=== PATIENT | male | born 1940 | race Caucasian/White ===

== ENCOUNTER 2019-12-15 06:23 | Outpatient (CLI) | payer MEDICARE, BC ==
[2019-12-15 11:05] LABS: #Basophils 0.1 10x3/uL (0.0-0.2); #Eosinphils 0.1 10x3/uL (0.0-0.5); #Monocytes 1.1 10x3/uL (0.0-1.1); #Neutrophils 5.1 10x3/uL (1.5-8.4); %Basophils 0.9 % (0.0-2.0); %Eosinophils 1.8 % (0.0-6.0); %Lymphocytes 17.5 % (18.0-47.0); %Neutrophils 65.5 % (40.0-75.0); Hemoglobin 12.2 g/dL (14.0-18.0); Mean Corpuscular HGB CONC 30.8 G/DL (32.0-36.0); Mean Corpuscular Hemoglobin 23.9 PG (27.0-33.0); Mean Corpuscular Volume 77.6 fl (80.0-100.0); Mean Platelet Volume 8.9 fl (7.4-10.4); Platelet Count 303 10x3/uL (130-400); RBC Distribution Width 18.3 % (11.5-14.5); White Blood Cell (WBC) Count 7.7 10x3/uL (4.5-11.0)
[2019-12-15 12:37] LABS: ALT (SGPT) 17 U/L (8-55); AST (SGOT) 16 U/L (5-34); Albumin 4.2 g/dL (3.4-4.8); Alkaline Phosphatase 105 U/L (40-110); Anion Gap 19 mmol/L (10-20); BUN (Urea Nitrogen) 33 mg/dL (8.4-25.7); Bilirubin, Total 0.3 mg/dL (0.2-1.2); Calc. Creatinine Clearance 0 mL/min (70-130); Calcium 9.2 mg/dL (7.8-10.44); Carbon Dioxide 21 mmol/L (23-31); Chloride 102 mmol/L (98-107); Estimated GFR-MDRD 49; Globulin 2.9 g/dL (2.4-3.5); Glucose 90 mg/dL (83-110); Potassium 5.3 mmol/L (3.5-5.1); Protein, Total 7.1 g/dL (5.8-8.1); Sodium 137 mmol/L (136-145)
--- NOTE | 2019-12-15 21:10 | EKG ---
Test Reason : Blood Pressure : / mmHG Vent. Rate : 067 BPM Atrial Rate : 067 BPM P-R Int : 176 ms QRS Dur : 108 ms QT Int : 416 ms P-R-T Axes : 010 -59 028 degrees QTc Int : 439 ms Normal sinus rhythm Incomplete right bundle branch block Left anterior fascicular block Abnormal ECG No previous ECGs available Confirmed by Eb JAVED ([id number]) on 12/15/2019 9:10:30 PM Referred By: CARMITA Confirmed By:Eb JAVED
[2019-12-16 14:43] LABS: SARS-CoV-2 MS2 Positive; SARS-CoV-2 N Gene Negative; SARS-CoV-2 S Gene Negative; SARS-CoV-2 by NAA Not Detected (NotDetected); SARS-CoV-2 orf1ab Negative
== END 2019-12-15 06:24 | disposition home or self-care (01) ==
LOC: LABBT 06:23
PROVIDERS: ATTEND Surgery
DX: Z01.818 Encounter for other preprocedural examination (principal); K40.90 Unilateral inguinal hernia, without obstruction or gangrene, not specified as recurrent; Z20.828 Contact with and (suspected) exposure to other viral communicable diseases
CPT/HCPCS: 80053; 85025; 93005; U0003; 87635; 93010

== ENCOUNTER 2019-12-20 05:59 | Day surgery (SDC) | payer MEDICARE, BC ==
[2019-12-17 11:47] VITALS: BMI 28.8
[2019-12-20] MEDS ORDERED: Lidocaine 1% w/Epinephrine 1:100K 20 ML VIAL ONE (06:30)
[2019-12-20] MEDS ORDERED: Bupivacaine 0.25% HCL 30 ML VIAL ONE (06:30)
[2019-12-20] MEDS ORDERED: Fentanyl 100 MCG/2 ML VIAL ONE (06:39)
--- NOTE | 2019-12-20 08:52 | OP ---
DATE OF PROCEDURE: 12/20/2019 PREOPERATIVE DIAGNOSIS: Right inguinal hernia. PROCEDURE PERFORMED: Right inguinal hernia repair with mesh. INDICATION: A 79-year-old male with enlarging painful right inguinal hernia. FINDINGS: Right indirect inguinal hernia. DESCRIPTION OF PROCEDURE: After informed consent was obtained, the patient was taken to the operating room, given total IV anesthesia, placed in supine position. Groin was prepped and draped in usual fashion. Local anesthesia was infiltrated subcutaneously and deep, and transverse right inguinal incision was performed. Subcu divided sharply. The fascia of external oblique was incised in direction of its fibers through the external ring. Spermatic cord was isolated with a Judie drain. Cremasteric fibers were . There was a hernia sac. This was dissected from surrounding cord structures down to the internal ring and reduced. Reduction was maintained utilizing a PHS hernia system. The posterior layer was placed in the preperitoneal space, anterior was laid out, sutured to the pubic tubercle medially with a 2-0 Prolene suture. Tucked under the external oblique fascia laterally. Hemostasis was assured. The cord placed anatomically. The external oblique fascia was closed with a running 3-0 Vicryl. Tolu was closed with interrupted 3-0 Vicryl and the skin was closed with a running subcuticular 4-0 Rapide. Steri-Strips were applied. Sterile bandage was applied. The patient tolerated the procedure well and transferred to Recovery in good condition. Sponge and needle count verified correct x2. Job ID: [id number]
[2019-12-20] MEDS ORDERED: Ketorolac Tromethamine 30 MG/ML VIAL ONE (11:42)
[2019-12-20] MEDS ORDERED: PROPOFOL 200 MG/20 ML VIAL ONE (11:42)
[2019-12-20] MEDS ORDERED: PHENYLEPHRINE-NS 100 MCG/ML 10 ML SYRINGE ONE (11:42)
[2019-12-20] MEDS ORDERED: Rocuronium Bromide 10 MG/ML (10ML VIAL) ONE (11:42)
[2019-12-20] MEDS ORDERED: Ondansetron PF 4 MG/2 ML Vial ONE (11:42)
[2019-12-20] MEDS ORDERED: Dexamethasone 20 MG/5 ML VIAL ONE (11:42)
[2019-12-20] MEDS ORDERED: Lidocaine 1% PF 5 ML VIAL ONE (11:42)
== END 2019-12-20 10:15 | disposition home or self-care (01) ==
LOC: SDC 05:59
PROVIDERS: ATTEND Surgery
PROC: 0YU50JZ Supplement Right Inguinal Region with Synthetic Substitute, Open Approach (ICD-10-PCS; principal; 2019-12-20)
DX: K40.90 Unilateral inguinal hernia, without obstruction or gangrene, not specified as recurrent (principal); I48.91 Unspecified atrial fibrillation; I11.0 Hypertensive heart disease with heart failure; I50.32 Chronic diastolic (congestive) heart failure; M10.9 Gout, unspecified; G62.9 Polyneuropathy, unspecified; Z79.01 Long term (current) use of anticoagulants; Z79.899 Other long term (current) drug therapy; Z98.1 Arthrodesis status
CPT/HCPCS: C1781; J0690; J1100; J1885; J2405; J2704; J3010; S0020

== ENCOUNTER 2020-04-19 17:49 | Inpatient (IN) | payer MEDICARE, BC ==
[2020-04-19] MEDS ORDERED: Morphine 4 MG/ML VIAL ONE (19:10)
[2020-04-19 19:19] LABS: #Eosinphils 0.3 thou/uL (0.0-0.7); #Lymphocytes 0.8 thou/uL (1.20-3.40); #Monocytes 0.8 thou/uL (0.11-0.59); #Neutrophils 7.3 thou/uL (1.40-6.50); %Basophils 0.5 % (0.0-1.0); %Eosinophils 2.9 % (0.0-10.0); %Monocytes 8.4 % (0.0-10.0); %Neutrophils 79.3 % (42.0-75.0); Hemoglobin 11.7 g/dL (14.0-18.0); Mean Corpuscular Hemoglobin 28.7 pg (27.0-31.0); Mean Corpuscular Volume 87.1 fL (78.0-98.0); Mean Platelet Volume 6.2 fL (7.4-10.4); Platelet Count 311 thou/uL (130-400); Red Blood Cell (RBC) Count 4.08 mill/uL (4.70-6.10); White Blood Cell (WBC) Count 9.2 thou/uL (4.8-10.8)
[2020-04-19] MEDS ORDERED: Ondansetron PF 4 MG/2 ML Vial ONE (19:46)
[2020-04-19 19:48] LABS: ALT (SGPT) 17 U/L (8-55); AST (SGOT) 18 U/L (5-34); Albumin 3.8 g/dL (3.4-4.8); Alkaline Phosphatase 90 U/L (40-110); Anion Gap 16 mmol/L (10-20); BUN (Urea Nitrogen) 36 mg/dL (8.4-25.7); Bilirubin, Total 0.3 mg/dL (0.2-1.2); Calc. Creatinine Clearance 0 mL/min (70-130); Carbon Dioxide 20 mmol/L (23-31); Chloride 103 mmol/L (98-107); Globulin 3.2 g/dL (2.4-3.5); Glucose 106 mg/dL (83-110); Potassium 4.5 mmol/L (3.5-5.1); Sodium 134 mmol/L (136-145)
[2020-04-19 20:51] LABS: INR-International Normal Ratio 1.1; PTT 33.8 sec (22.9-36.1); Prothrombin Time 14.6 sec (12.0-14.7)
[2020-04-19] MEDS ORDERED: Dextrose 50% Abboject 50 ML SYRINGE SLOW IVP PRN (21:26)
[2020-04-19] MEDS ORDERED: hydrALAZINE 20 MG/ML VIAL SLOW IVP PRN (21:26)
[2020-04-19] MEDS ORDERED: traMADol HCl 50 MG TAB PO PRN (21:26)
[2020-04-19] MEDS ORDERED: Ondansetron PF 4 MG/2 ML Vial IVP PRN (21:26)
[2020-04-19] MEDS ORDERED: Ondansetron ODT 4 MG TAB PO PRN (21:26)
[2020-04-19] MEDS ORDERED: Morphine 2 MG/ML VIAL SLOW IVP PRN (21:26)
[2020-04-19] MEDS ORDERED: Dextrose 5% in Water 1,000 ML IV PRN (21:26)
[2020-04-19] MEDS ORDERED: Morphine 4 MG/ML VIAL SLOW IVP PRN (21:26)
[2020-04-19] MEDS: Cyclobenzaprine 10 MG TAB PO PRN (21:47)
[2020-04-19] MEDS: Ibuprofen 800 MG TAB PO SCH (21:48)
[2020-04-19 22:27] VITALS: BMI 29.3
[2020-04-19] MEDS ORDERED: Famotidine 20 MG TAB PO SCH (22:30)
[2020-04-19] MEDS ORDERED: Valsartan 80 MG TAB PO SCH (22:45)
[2020-04-19] MEDS ORDERED: Amiodarone 200 MG TAB PO SCH (22:45)
[2020-04-19] MEDS ORDERED: Allopurinol 100 MG TAB PO SCH (22:45)
[2020-04-19] MEDS ORDERED: Sulfameth/Trimethoprim DS 800-160mg TAB PO SCH (22:45)
[2020-04-19] MEDS: Sodium Chloride 0.9% 1,000 ML IV SCH (23:40)
[2020-04-20] MEDS: Acetaminophen 325 MG TAB PO SCH ×5 (00:45→23:23)
[2020-04-20] MEDS ORDERED: Melatonin 3 MG TAB PO SCH (01:00)
[2020-04-20 02:38] LABS: SARS-CoV-2 PCR by NAA Not Detected (NotDetected)
[2020-04-20 05:10] LABS: #Eosinphils 0.4 thou/uL (0.0-0.7); #Lymphocytes 1.3 thou/uL (1.20-3.40); #Monocytes 0.9 thou/uL (0.11-0.59); #Neutrophils 4.6 thou/uL (1.40-6.50); %Basophils 0.3 % (0.0-1.0); %Eosinophils 5.3 % (0.0-10.0); %Lymphocytes 17.6 % (21.0-51.0); %Monocytes 13.1 % (0.0-10.0); %Neutrophils 63.7 % (42.0-75.0); Hemoglobin 10.4 g/dL (14.0-18.0); Mean Corpuscular HGB CONC 32.4 g/dL (32.0-36.0); Mean Corpuscular Hemoglobin 28.4 pg (27.0-31.0); Mean Corpuscular Volume 87.6 fL (78.0-98.0); Mean Platelet Volume 6.1 fL (7.4-10.4); Platelet Count 287 thou/uL (130-400); RBC Distribution Width 13.9 % (11.5-14.5); Red Blood Cell (RBC) Count 3.65 mill/uL (4.70-6.10); White Blood Cell (WBC) Count 7.2 thou/uL (4.8-10.8)
[2020-04-20 05:33] LABS: Anion Gap 12 mmol/L (10-20); BUN (Urea Nitrogen) 37 mg/dL (8.4-25.7); Calc. Creatinine Clearance 58 mL/min (70-130); Calcium 8.5 mg/dL (7.8-10.44); Carbon Dioxide 23 mmol/L (23-31); Chloride 103 mmol/L (98-107); Glucose 116 mg/dL (83-110); Potassium 4.2 mmol/L (3.5-5.1); Sodium 134 mmol/L (136-145)
[2020-04-20] MEDS: Ibuprofen 800 MG TAB PO SCH ×3 (06:12→22:12)
[2020-04-20] MEDS: Sodium Chloride 0.9% 1,000 ML IV SCH ×2 (06:18→23:23)
[2020-04-20] MEDS ORDERED: Vancomycin 1 GM in Premix Bag 1 BAG IVPB SCH (08:30)
[2020-04-20] MEDS ORDERED: CEFAZOLIN 2 GM in Premix Bag 1 BAG IVPB SCH (08:30)
[2020-04-20] MEDS: Allopurinol 100 MG TAB PO SCH (08:47)
[2020-04-20] MEDS: Sulfameth/Trimethoprim DS 800-160mg TAB PO SCH ×2 (08:47→20:25)
[2020-04-20] MEDS: Triamterene/Hydrochlorothiazide 37.5 mg/25 mg Tablet PO SCH (08:49)
[2020-04-20] MEDS: traMADol HCl 50 MG TAB PO PRN (13:37)
[2020-04-20] MEDS: Valsartan 80 MG TAB PO SCH (20:25)
[2020-04-20] MEDS: Famotidine 20 MG TAB PO SCH (20:25)
[2020-04-20] MEDS: Cyclobenzaprine 10 MG TAB PO PRN (20:27)
[2020-04-20] MEDS ORDERED: Amiodarone 200 MG TAB PO SCH (21:00)
[2020-04-21] MEDS: Acetaminophen 325 MG TAB PO SCH ×4 (05:47→23:02)
[2020-04-21] MEDS: Ibuprofen 800 MG TAB PO SCH ×3 (05:48→21:15)
[2020-04-21] MEDS ORDERED: Amiodarone 200 MG TAB PO SCH (08:15)
[2020-04-21 08:33] LABS: Hemoglobin 10.3 g/dL (14.0-18.0); Mean Corpuscular HGB CONC 32.8 g/dL (32.0-36.0); Mean Corpuscular Hemoglobin 28.6 pg (27.0-31.0); Mean Corpuscular Volume 87.2 fL (78.0-98.0); Platelet Count 285 thou/uL (130-400); RBC Distribution Width 13.9 % (11.5-14.5); Red Blood Cell (RBC) Count 3.61 mill/uL (4.70-6.10); White Blood Cell (WBC) Count 7.5 thou/uL (4.8-10.8)
[2020-04-21 08:40] LABS: Anion Gap 13 mmol/L (10-20); BUN (Urea Nitrogen) 27 mg/dL (8.4-25.7); Calc. Creatinine Clearance 73 mL/min (70-130); Calcium 8.3 mg/dL (7.8-10.44); Carbon Dioxide 22 mmol/L (23-31); Chloride 104 mmol/L (98-107); Glucose 87 mg/dL (83-110); Magnesium 1.9 mg/dL (1.6-2.6); Phosphorus 2.8 mg/dL (2.3-4.7); Potassium 4.6 mmol/L (3.5-5.1); Sodium 134 mmol/L (136-145)
[2020-04-21] MEDS: Sodium Chloride 0.9% 1,000 ML IV SCH (08:41)
[2020-04-21] MEDS ORDERED: ePHEDrine 50 MG/ML VIAL ONE (09:12)
[2020-04-21] MEDS ORDERED: PROPOFOL 200 MG/20 ML VIAL ONE (09:12)
[2020-04-21] MEDS ORDERED: Rocuronium Bromide 10 MG/ML (10ML VIAL) ONE (09:12)
[2020-04-21] MEDS ORDERED: Lidocaine 1% PF 5 ML VIAL ONE (09:12)
[2020-04-21] MEDS ORDERED: PHENYLEPHRINE-NS 100 MCG/ML 10 ML SYRINGE ONE (09:12)
[2020-04-21] MEDS ORDERED: Glycopyrrolate 0.2 MG/ML 5 ML SYRINGE ONE (09:12)
[2020-04-21] MEDS ORDERED: Vecuronium 10 MG VIAL ONE (09:12)
[2020-04-21] MEDS ORDERED: Fentanyl 250 MCG/5 ML VIAL ONE (09:39)
[2020-04-21] MEDS ORDERED: Lidocaine 2% Jelly 5 ML TUBE ONE (09:39)
[2020-04-21] MEDS ORDERED: Phenylephrine 10 MG/ML VIAL ONE ×2 (09:39→11:39)
[2020-04-21 11:38] LABS: Hemoglobin 9.9 g/dL (14.0-18.0)
[2020-04-21] MEDS ORDERED: Ondansetron HCl/PF 4 MG/2 ML Vial IVP PRN (12:22)
[2020-04-21] MEDS ORDERED: Promethazine HCl 25 MG/ML VIAL IM PRN (12:22)
[2020-04-21] MEDS ORDERED: Promethazine HCl 25 MG/ML VIAL SLOW IVP PRN (12:22)
[2020-04-21] MEDS ORDERED: Promethazine HCl 25 MG/ML VIAL ONE (13:42)
[2020-04-21 14:43] LABS: Hemoglobin 8.6 g/dL (14.0-18.0)
[2020-04-21] MEDS ORDERED: Sodium Phosphate 30 MMOL in Sodium Chloride 0.9% 250 ML 250 ML IVPB SCH (15:00)
[2020-04-21] MEDS ORDERED: Magnesium Sulfate 2 GM in Sodium Chloride 0.9% 100 ML IVPB SCH (15:00)
[2020-04-21] MEDS: Allopurinol 100 MG TAB PO SCH (16:20)
[2020-04-21] MEDS: Polyethylene Glycol 3350 17 GM Packet PO SCH (16:21)
[2020-04-21] MEDS: Sulfameth/Trimethoprim DS 800-160mg TAB PO SCH ×2 (16:21→19:43)
[2020-04-21] MEDS: Senokot S 8.6-50 MG TAB PO SCH ×2 (16:21→19:42)
[2020-04-21] MEDS: Triamterene/Hydrochlorothiazide 37.5 mg/25 mg Tablet PO SCH (16:21)
[2020-04-21] MEDS: CEFAZOLIN 2 GM in Premix Bag 1 BAG IVPB SCH (17:54)
[2020-04-21] MEDS: Cyclobenzaprine 10 MG TAB PO PRN (19:37)
[2020-04-21] MEDS: traMADol HCl 50 MG TAB PO PRN (19:39)
[2020-04-21] MEDS: Famotidine 20 MG TAB PO SCH (19:42)
[2020-04-21] MEDS: Amiodarone 200 MG TAB PO SCH (19:44)
[2020-04-21] MEDS: Valsartan 80 MG TAB PO SCH ×2 (19:44)
[2020-04-21] MEDS ORDERED: Vancomycin HCl 1.5 GM in Sodium Chloride 0.9% 250 ML 300 ML IVPB SCH (23:00)
[2020-04-21] MEDS: Vancomycin 1.5 GRAM/300 ML BAG 1.5 GM in Premix Bag 1 BAG IVPB SCH (23:02)
[2020-04-22] MEDS: traMADol HCl 50 MG TAB PO PRN (01:22)
[2020-04-22] MEDS: CEFAZOLIN 2 GM in Premix Bag 1 BAG IVPB SCH ×2 (01:23→09:20)
[2020-04-22] MEDS: Acetaminophen 325 MG TAB PO SCH ×3 (05:18→17:25)
[2020-04-22] MEDS: Cyclobenzaprine 10 MG TAB PO PRN (05:18)
[2020-04-22] MEDS: Ibuprofen 800 MG TAB PO SCH ×3 (05:19→21:18)
[2020-04-22 05:47] LABS: Hemoglobin 7.8 g/dL (14.0-18.0); Mean Corpuscular HGB CONC 33.2 g/dL (32.0-36.0); Mean Corpuscular Hemoglobin 29.3 pg (27.0-31.0); Mean Corpuscular Volume 88.4 fL (78.0-98.0); Mean Platelet Volume 6.4 fL (7.4-10.4); Platelet Count 295 thou/uL (130-400); RBC Distribution Width 13.6 % (11.5-14.5); Red Blood Cell (RBC) Count 2.66 mill/uL (4.70-6.10); White Blood Cell (WBC) Count 11.2 thou/uL (4.8-10.8)
[2020-04-22 06:30] LABS: Anion Gap 14 mmol/L (10-20); BUN (Urea Nitrogen) 28 mg/dL (8.4-25.7); Calc. Creatinine Clearance 63 mL/min (70-130); Calcium 7.8 mg/dL (7.8-10.44); Carbon Dioxide 20 mmol/L (23-31); Chloride 103 mmol/L (98-107); Glucose 128 mg/dL (83-110); Magnesium 2.2 mg/dL (1.6-2.6); Phosphorus 4.1 mg/dL (2.3-4.7); Potassium 4.7 mmol/L (3.5-5.1); Sodium 132 mmol/L (136-145)
[2020-04-22] MEDS: Polyethylene Glycol 3350 17 GM Packet PO SCH (09:14)
[2020-04-22] MEDS: Sulfameth/Trimethoprim DS 800-160mg TAB PO SCH ×3 (09:15→23:20)
[2020-04-22] MEDS: Senokot S 8.6-50 MG TAB PO SCH ×2 (09:15→21:13)
[2020-04-22] MEDS: Triamterene/Hydrochlorothiazide 37.5 mg/25 mg Tablet PO SCH (09:15)
[2020-04-22] MEDS: Allopurinol 100 MG TAB PO SCH (09:16)
[2020-04-22] MEDS ORDERED: Apixaban 2.5 MG TAB PO SCH (09:30)
[2020-04-22] MEDS: Acetaminophen/Codeine 30-300mg Tablet PO SCH ×3 (10:35→21:19)
[2020-04-22] MEDS: Vancomycin 1.5 GRAM/300 ML BAG 1.5 GM in Premix Bag 1 BAG IVPB SCH (10:35)
[2020-04-22] MEDS ORDERED: Cepastat Lozenges 1 LOZ PO PRN (13:30)
[2020-04-22] MEDS ORDERED: Chloraseptic Spray 180 ml Bottle PO PRN (13:31)
[2020-04-22] MEDS: Ferrous Sulfate 325 MG TAB PO SCH (17:26)
[2020-04-22] MEDS ORDERED: Apixaban 5 MG TAB PO SCH (21:00)
[2020-04-22] MEDS: Famotidine 20 MG TAB PO SCH (21:13)
[2020-04-22] MEDS: Ascorbic Acid 500 mg Chewable Tablet PO SCH (21:13)
[2020-04-22] MEDS: Amiodarone 200 MG TAB PO SCH (21:15)
[2020-04-22] MEDS: Melatonin 3 MG TAB PO SCH (21:15)
[2020-04-22] MEDS: Valsartan 80 MG TAB PO SCH (23:21)
[2020-04-23] MEDS: Acetaminophen 325 MG TAB PO SCH ×4 (04:08→17:58)
[2020-04-23] MEDS: Acetaminophen/Codeine 30-300mg Tablet PO SCH ×4 (04:55→21:10)
[2020-04-23] MEDS: Ibuprofen 800 MG TAB PO SCH (04:56)
[2020-04-23 06:05] LABS: Hemoglobin 6.5 g/dL (14.0-18.0); Mean Corpuscular HGB CONC 32.5 g/dL (32.0-36.0); Mean Corpuscular Hemoglobin 28.4 pg (27.0-31.0); Mean Corpuscular Volume 87.4 fL (78.0-98.0); Mean Platelet Volume 6.2 fL (7.4-10.4); Platelet Count 250 thou/uL (130-400); RBC Distribution Width 13.8 % (11.5-14.5); Red Blood Cell (RBC) Count 2.28 mill/uL (4.70-6.10); White Blood Cell (WBC) Count 8.6 thou/uL (4.8-10.8)
[2020-04-23 06:13] LABS: Anion Gap 14 mmol/L (10-20); BUN (Urea Nitrogen) 35 mg/dL (8.4-25.7); Calc. Creatinine Clearance 44 mL/min (70-130); Calcium 7.6 mg/dL (7.8-10.44); Carbon Dioxide 19 mmol/L (23-31); Chloride 100 mmol/L (98-107); Glucose 94 mg/dL (83-110); Potassium 4.1 mmol/L (3.5-5.1); Sodium 129 mmol/L (136-145)
[2020-04-23] MEDS: Sulfameth/Trimethoprim DS 800-160mg TAB PO SCH ×4 (07:55→21:12)
[2020-04-23] MEDS: Calcium Gluconate 4.6 MEQ in Sodium Chloride 0.9% 100 ML IVPB SCH ×2 (10:48→18:01)
[2020-04-23] MEDS: Senokot S 8.6-50 MG TAB PO SCH ×2 (10:48→21:11)
[2020-04-23] MEDS: Polyethylene Glycol 3350 17 GM Packet PO SCH (10:49)
[2020-04-23] MEDS: Ferrous Sulfate 325 MG TAB PO SCH ×2 (10:49→16:00)
[2020-04-23] MEDS: Allopurinol 100 MG TAB PO SCH (10:49)
[2020-04-23] MEDS: Ascorbic Acid 500 mg Chewable Tablet PO SCH ×2 (10:49→21:12)
[2020-04-23 14:41] LABS: Hemoglobin 7.2 g/dL (14.0-18.0); Platelet Count 264 thou/uL (130-400)
[2020-04-23 18:58] LABS: Hemoglobin 7.7 g/dL (14.0-18.0); Platelet Count 229 thou/uL (130-400)
[2020-04-23] MEDS: Famotidine 20 MG TAB PO SCH (21:10)
[2020-04-23] MEDS: Valsartan 80 MG TAB PO SCH (21:12)
[2020-04-23] MEDS: Cyclobenzaprine 10 MG TAB PO PRN (21:12)
[2020-04-23] MEDS: Amiodarone 200 MG TAB PO SCH (21:12)
[2020-04-23] MEDS: Melatonin 3 MG TAB PO SCH (21:12)
[2020-04-24] MEDS: Acetaminophen 325 MG TAB PO SCH ×5 (00:11→23:18)
[2020-04-24] MEDS: Melatonin 3 MG TAB PO SCH ×2 (00:11→21:19)
[2020-04-24] MEDS: Acetaminophen/Codeine 30-300mg Tablet PO SCH ×4 (03:56→21:20)
[2020-04-24 05:39] LABS: #Eosinphils 0.7 thou/uL (0.0-0.7); #Lymphocytes 1.1 thou/uL (1.20-3.40); #Neutrophils 4.2 thou/uL (1.40-6.50); %Basophils 0.6 % (0.0-1.0); %Eosinophils 9.9 % (0.0-10.0); %Lymphocytes 15.3 % (21.0-51.0); %Monocytes 14.6 % (0.0-10.0); %Neutrophils 59.7 % (42.0-75.0); Mean Corpuscular HGB CONC 33.8 g/dL (32.0-36.0); Mean Corpuscular Hemoglobin 29.9 pg (27.0-31.0); Mean Corpuscular Volume 88.3 fL (78.0-98.0); Mean Platelet Volume 6.3 fL (7.4-10.4); Platelet Count 241 thou/uL (130-400); RBC Distribution Width 13.7 % (11.5-14.5); Red Blood Cell (RBC) Count 2.69 mill/uL (4.70-6.10)
[2020-04-24 06:18] LABS: Anion Gap 13 mmol/L (10-20); BUN (Urea Nitrogen) 26 mg/dL (8.4-25.7); Calc. Creatinine Clearance 72 mL/min (70-130); Calcium 8.3 mg/dL (7.8-10.44); Carbon Dioxide 22 mmol/L (23-31); Chloride 105 mmol/L (98-107); Glucose 92 mg/dL (83-110); Phosphorus 2.6 mg/dL (2.3-4.7); Potassium 4.6 mmol/L (3.5-5.1); Sodium 135 mmol/L (136-145)
[2020-04-24] MEDS ORDERED: Fentanyl 100 MCG/2 ML VIAL ONE (07:33)
[2020-04-24] MEDS: Polyethylene Glycol 3350 17 GM Packet PO SCH (09:22)
[2020-04-24] MEDS: Sulfameth/Trimethoprim DS 800-160mg TAB PO SCH ×4 (09:23→21:20)
[2020-04-24] MEDS: Allopurinol 100 MG TAB PO SCH (09:23)
[2020-04-24] MEDS: Senokot S 8.6-50 MG TAB PO SCH ×2 (09:23→21:19)
[2020-04-24] MEDS: Ferrous Sulfate 325 MG TAB PO SCH ×2 (09:23→17:06)
[2020-04-24] MEDS: Ascorbic Acid 500 mg Chewable Tablet PO SCH ×2 (09:23→21:19)
[2020-04-24] MEDS: Cyclobenzaprine 10 MG TAB PO PRN (21:18)
[2020-04-24] MEDS: Amiodarone 200 MG TAB PO SCH (21:19)
[2020-04-24] MEDS: Valsartan 80 MG TAB PO SCH (21:20)
[2020-04-25] MEDS: Acetaminophen 325 MG TAB PO SCH ×3 (05:05→18:26)
[2020-04-25] MEDS: Acetaminophen/Codeine 30-300mg Tablet PO SCH ×4 (05:05→21:10)
[2020-04-25 05:50] LABS: Hemoglobin 7.7 g/dL (14.0-18.0); Mean Corpuscular HGB CONC 33.1 g/dL (32.0-36.0); Mean Corpuscular Hemoglobin 29.5 pg (27.0-31.0); Mean Corpuscular Volume 89.2 fL (78.0-98.0); Mean Platelet Volume 6.1 fL (7.4-10.4); Platelet Count 278 thou/uL (130-400); RBC Distribution Width 14.1 % (11.5-14.5); Red Blood Cell (RBC) Count 2.62 mill/uL (4.70-6.10); White Blood Cell (WBC) Count 7.5 thou/uL (4.8-10.8)
[2020-04-25 05:56] LABS: Hemoglobin 7.7 g/dL (14.0-18.0); Mean Corpuscular HGB CONC 33.3 g/dL (32.0-36.0); Mean Corpuscular Hemoglobin 29.7 pg (27.0-31.0); Mean Corpuscular Volume 89.3 fL (78.0-98.0); Mean Platelet Volume 6.1 fL (7.4-10.4); Platelet Count 276 thou/uL (130-400); White Blood Cell (WBC) Count 7.6 thou/uL (4.8-10.8)
[2020-04-25 06:06] LABS: Anion Gap 11 mmol/L (10-20); BUN (Urea Nitrogen) 23 mg/dL (8.4-25.7); Calc. Creatinine Clearance 87 mL/min (70-130); Calcium 8.3 mg/dL (7.8-10.44); Carbon Dioxide 24 mmol/L (23-31); Chloride 106 mmol/L (98-107); Glucose 96 mg/dL (83-110); Magnesium 1.8 mg/dL (1.6-2.6); Phosphorus 2.5 mg/dL (2.3-4.7); Potassium 4.5 mmol/L (3.5-5.1); Sodium 136 mmol/L (136-145)
[2020-04-25 08:28] LABS: Band 2 % (5-11); Eosinophils 9 % (0-10); Lymphocytes 15 % (21-51); MDiff Complete? YES; Monocytes 13 % (0-10); Myelocyte 1 % (0-0); Neutrophil 60 % (42-75); Polychromasia SLIGHT = 2-3 cells (100X) (0-2/hpf)
[2020-04-25] MEDS: Senokot S 8.6-50 MG TAB PO SCH ×2 (08:55→20:41)
[2020-04-25] MEDS: Ferrous Sulfate 325 MG TAB PO SCH ×2 (08:56→18:26)
[2020-04-25] MEDS: Ascorbic Acid 500 mg Chewable Tablet PO SCH ×2 (08:56→20:40)
[2020-04-25] MEDS: Allopurinol 100 MG TAB PO SCH (08:56)
[2020-04-25] MEDS: Sulfameth/Trimethoprim DS 800-160mg TAB PO SCH ×3 (08:56→20:40)
[2020-04-25] MEDS: Apixaban 2.5 MG TAB PO SCH ×2 (08:57→20:40)
[2020-04-25] MEDS: Polyethylene Glycol 3350 17 GM Packet PO SCH (08:57)
[2020-04-25] MEDS ORDERED: Apixaban 5 MG TAB PO SCH (09:00)
[2020-04-25] MEDS: Valsartan 80 MG TAB PO SCH (20:39)
[2020-04-25] MEDS: Amiodarone 200 MG TAB PO SCH (20:40)
[2020-04-25] MEDS: Cyclobenzaprine 10 MG TAB PO PRN (20:41)
[2020-04-25] MEDS: Melatonin 3 MG TAB PO SCH (20:41)
[2020-04-26] MEDS: Acetaminophen 325 MG TAB PO SCH ×3 (00:23→12:17)
[2020-04-26] MEDS: Acetaminophen/Codeine 30-300mg Tablet PO SCH ×3 (05:19→15:30)
[2020-04-26] MEDS: Ascorbic Acid 500 mg Chewable Tablet PO SCH (08:56)
[2020-04-26] MEDS: Apixaban 2.5 MG TAB PO SCH (08:56)
[2020-04-26] MEDS: Ferrous Sulfate 325 MG TAB PO SCH (08:56)
[2020-04-26] MEDS: Sulfameth/Trimethoprim DS 800-160mg TAB PO SCH (08:57)
[2020-04-26] MEDS: Allopurinol 100 MG TAB PO SCH (08:57)
[2020-04-26] MEDS: Senokot S 8.6-50 MG TAB PO SCH (08:57)
[2020-04-26] MEDS: Polyethylene Glycol 3350 17 GM Packet PO SCH (08:57)
[2020-04-26 15:51] VITALS: BP 147/83; TEMP 98.8
== END 2020-04-26 16:40 | DRG 467 ==
LOC: ERS 17:49 → SURG A 19:05
PROVIDERS: ADMIT Surgery; ATTEND Surgery
PROC: 0SRS03Z Replacement of Left Hip Joint, Femoral Surface with Ceramic Synthetic Substitute, Open Approach (ICD-10-PCS; principal; 2020-04-21)
PROC: 0SPS0JZ Removal of Synthetic Substitute from Left Hip Joint, Femoral Surface, Open Approach (ICD-10-PCS; 2020-04-21)
PROC: 0QS904Z Reposition Left Femoral Shaft with Internal Fixation Device, Open Approach (ICD-10-PCS; 2020-04-21)
PROC: 30233N1 Transfusion of Nonautologous Red Blood Cells into Peripheral Vein, Percutaneous Approach (ICD-10-PCS; 2020-04-23)
DX: S72.352A Displaced comminuted fracture of shaft of left femur, initial encounter for closed fracture (principal); M97.02XA Periprosthetic fracture around internal prosthetic left hip joint, initial encounter; N17.9 Acute kidney failure, unspecified; T84.52XA Infection and inflammatory reaction due to internal left hip prosthesis, initial encounter; E87.1 Hypo-osmolality and hyponatremia; Z20.822 Contact with and (suspected) exposure to COVID-19; D64.9 Anemia, unspecified; I48.91 Unspecified atrial fibrillation; I10 Essential (primary) hypertension; M10.9 Gout, unspecified; Y83.1 Surgical operation with implant of artificial internal device as the cause of abnormal reaction of the patient, or of later complication, without mention of misadventure at the time of the procedure; V80.010A Animal-rider injured by fall from or being thrown from horse in noncollision accident, initial encounter; Y93.52 Activity, horseback riding; Z79.01 Long term (current) use of anticoagulants; Z79.899 Other long term (current) drug therapy
CPT/HCPCS: 36415; 36430; 71045; 72170; 80048; 80053; 83735; 84100; 84484; 85025; 85027; 85610; 85730; 86850; 86900; 86901; 87635; 93005; 96374; 96375; C1776; J0690; J2001; J2270; J2370; J2405; J2550; J2704; J3010; J3370; J3475; J3490; J7050; P9016; U0003; U0005

== ENCOUNTER 2020-10-20 19:05 | Emergency (ER) | payer MEDICARE, BC ==
[2020-10-20] MEDS ORDERED: PROPOFOL 20 ML ONE (20:17)
[2020-10-20] MEDS ORDERED: PROPOFOL 0 ML ONE (20:17)
[2020-10-20] MEDS ORDERED: Fentanyl 100 MCG/2 ML VIAL ONE (20:17)
== END 2020-10-20 21:41 | disposition home or self-care (01) ==
LOC: ERS 19:05
DX: T84.021A Dislocation of internal left hip prosthesis, initial encounter (principal); I48.91 Unspecified atrial fibrillation; I10 Essential (primary) hypertension; M10.9 Gout, unspecified; Z96.642 Presence of left artificial hip joint
CPT/HCPCS: 27250; 96374; 99152; J2704; J3010

== ENCOUNTER 2020-12-14 09:37 | Outpatient (CLI) | payer MEDICARE, BC | END 2020-12-14 09:38 | disposition home or self-care (01) | LOC: RAD 09:37 | PROVIDERS: ATTEND Orthopaedic Surgery | DX: M00.9 Pyogenic arthritis, unspecified (principal) | CPT/HCPCS: 20610; 77002; 87070; 87205 ==

== ENCOUNTER 2021-01-03 11:55 | Outpatient (CLI) | payer MEDICARE, BC ==
[2021-01-02 10:43] VITALS: BMI 27.6
[2021-01-03 13:14] LABS: #Basophils 0.1 10x3/uL (0.0-0.2); #Eosinphils 0.2 10x3/uL (0.0-0.5); #Monocytes 1.2 10x3/uL (0.0-1.1); #Neutrophils 4.6 10x3/uL (1.5-8.4); %Basophils 0.7 % (0.0-2.0); %Eosinophils 2.6 % (0.0-6.0); %Lymphocytes 28.3 % (18.0-47.0); %Monocytes 13.9 % (0.0-10.0); %Neutrophils 54.1 % (40.0-75.0); Hemoglobin 12.4 g/dL (13.5-17.5); Mean Corpuscular HGB CONC 31.4 g/dL (32.0-36.0); Mean Corpuscular Volume 85.9 fl (81.2-95.1); Mean Platelet Volume 8.4 fl (7.4-10.4); Platelet Count 336 10x3/uL (150-450); RBC Distribution Width 15.4 % (11.5-14.5); White Blood Cell (WBC) Count 8.5 10x3/uL (3.5-10.5)
[2021-01-03 13:22] LABS: INR-International Normal Ratio 1.1; Prothrombin Time 11.6 sec (9.5-12.1)
[2021-01-03 13:31] LABS: Anion Gap 17 mmol/L (10-20); BUN (Urea Nitrogen) 20 mg/dL (8.4-25.7); CRP (Inflammatory) 5.13 mg/dL (= or < 0.5); Calc. Creatinine Clearance 67 mL/min (70-130); Carbon Dioxide 24 mmol/L (23-31); Chloride 102 mmol/L (98-107); Glucose 71 mg/dL (83-110); Potassium 4.8 mmol/L (3.5-5.1); Sodium 138 mmol/L (136-145)
[2021-01-04 21:05] LABS: SARS-CoV-2 PCR by NAA Not Detected (NotDetected)
== END 2021-01-03 11:56 | disposition home or self-care (01) ==
LOC: LABBT 11:55
PROVIDERS: ATTEND Orthopaedic Surgery
DX: Z01.818 Encounter for other preprocedural examination (principal); M00.9 Pyogenic arthritis, unspecified; Z96.651 Presence of right artificial knee joint; Z20.822 Contact with and (suspected) exposure to COVID-19
CPT/HCPCS: 80048; 85025; 85610; 86140; 87081; 93005; U0003; U0005; 93010

== ENCOUNTER 2021-01-08 10:02 | Inpatient (IN) | payer MEDICARE, BC ==
[2021-01-08] MEDS ORDERED: Tranexamic Acid 1,000 MG/10 ML VIAL ONE (10:14)
[2021-01-08] MEDS ORDERED: Fentanyl 100 MCG/2 ML VIAL ONE ×5 (10:14→16:02)
[2021-01-08] MEDS ORDERED: Sodium Chloride 0.9% 100 ML ONE (10:14)
[2021-01-08] MEDS ORDERED: Midazolam HCl 2 mg/2 ml Vial ONE (10:14)
[2021-01-08] MEDS ORDERED: Lidocaine 2% Jelly 5 ML TUBE ONE (10:32)
[2021-01-08] MEDS ORDERED: Rocuronium Bromide 10 MG/ML (10ML VIAL) ONE (11:15)
[2021-01-08] MEDS ORDERED: Bupivacaine HCl 0.5%/Epinephrine 1:200,000/PF 30 ml Vial ONE (11:15)
[2021-01-08] MEDS ORDERED: Dexamethasone 20 MG/5 ML VIAL ONE (11:15)
[2021-01-08] MEDS ORDERED: Ondansetron PF 4 MG/2 ML Vial ONE (11:15)
[2021-01-08] MEDS ORDERED: PHENYLEPHRINE-NS 100 MCG/ML 10 ML SYRINGE ONE ×2 (11:15→13:28)
[2021-01-08] MEDS ORDERED: ePHEDrine 50 MG/ML VIAL ONE (11:15)
[2021-01-08] MEDS ORDERED: PROPOFOL 200 MG/20 ML VIAL ONE (11:15)
[2021-01-08] MEDS ORDERED: Glycopyrrolate 0.2 MG/ML 5 ML SYRINGE ONE (11:15)
[2021-01-08] MEDS ORDERED: Heparin 1,000 UNITS/ML VIAL ONE (11:21)
[2021-01-08] MEDS ORDERED: Tobramycin/Dexamethasone Ophth Oint 3.5 GM TUBE ONE (11:45)
[2021-01-08] MEDS ORDERED: Tobramycin Sulfate 1.2 GM VIAL ONE (11:46)
[2021-01-08] MEDS ORDERED: Promethazine HCl 25 MG/ML VIAL IM PRN ×3 (11:47→14:31)
[2021-01-08] MEDS ORDERED: Ondansetron HCl/PF 4 MG/2 ML Vial IVP PRN ×2 (11:47→14:31)
[2021-01-08] MEDS ORDERED: Promethazine HCl 25 MG/ML VIAL IVPB PRN ×2 (11:47→14:31)
[2021-01-08] MEDS ORDERED: Rocuronium Bromide 50 MG/5 ML VIAL ONE (13:10)
[2021-01-08] MEDS ORDERED: Albumin 5% 500 ML ONE (13:28)
[2021-01-08] MEDS ORDERED: ePHEDrine Sulfate 50 MG/10 ML VIAL ONE (13:28)
[2021-01-08] MEDS ORDERED: diphenhydrAMINE 25 MG CAP PO PRN (14:29)
[2021-01-08] MEDS ORDERED: Ondansetron PF 4 MG/2 ML Vial IVP PRN (14:29)
[2021-01-08] MEDS ORDERED: Acetaminophen 325 MG TAB PO PRN (14:29)
[2021-01-08] MEDS ORDERED: Zolpidem Tartrate 5 MG TAB PO PRN ×3 (14:29→20:04)
[2021-01-08] MEDS: Sodium Chloride 0.9% 1,000 ML IV SCH (17:40)
[2021-01-08] MEDS: HYDROcodone/Acetaminophen 10/325 mg Tablet PO PRN ×2 (17:55→23:23)
[2021-01-08] MEDS: Acetaminophen 325 MG TAB PO SCH ×2 (17:56→23:22)
[2021-01-08] MEDS ORDERED: Ferrous Gluconate 324 MG TAB PO SCH (21:00)
[2021-01-08] MEDS: Amiodarone 200 MG TAB PO SCH (21:04)
[2021-01-08] MEDS: Aspirin 81 mg Enteric Coated Tablet PO SCH (21:04)
[2021-01-08] MEDS: Valsartan 80 MG TAB PO SCH (21:05)
[2021-01-08] MEDS: CEFAZOLIN 2 GM, Admixture Fee 1 EACH in Sodium Chloride 0.9% 100 ML IVPB SCH (21:51)
[2021-01-09] MEDS: Sodium Chloride 0.9% 1,000 ML IV SCH ×3 (01:21→18:05)
[2021-01-09] MEDS: CEFAZOLIN 2 GM, Admixture Fee 1 EACH in Sodium Chloride 0.9% 100 ML IVPB SCH ×2 (04:45→12:20)
[2021-01-09] MEDS: HYDROcodone/Acetaminophen 10/325 mg Tablet PO PRN ×3 (04:46→22:08)
[2021-01-09] MEDS: Acetaminophen 325 MG TAB PO SCH ×3 (04:49→18:04)
[2021-01-09 06:16] LABS: Hemoglobin 9.6 g/dL (14.0-18.0); Mean Corpuscular HGB CONC 31.7 g/dL (32.0-36.0); Mean Corpuscular Hemoglobin 28.6 pg (27.0-31.0); Platelet Count 267 thou/uL (130-400); RBC Distribution Width 13.8 % (11.5-14.5); Red Blood Cell (RBC) Count 3.36 mill/uL (4.70-6.10)
[2021-01-09] MEDS: Senokot S 8.6-50 MG TAB PO SCH ×2 (08:32→21:10)
[2021-01-09] MEDS: Triamterene/Hydrochlorothiazide 37.5 mg/25 mg Tablet PO SCH (08:33)
[2021-01-09] MEDS: Ferrous Sulfate 325 MG TAB PO SCH ×2 (08:33→18:04)
[2021-01-09] MEDS: Multivitamin W/ Minerals 1 TAB PO SCH (08:33)
[2021-01-09] MEDS: Magnesium Oxide 250 MG TAB PO SCH (08:33)
[2021-01-09] MEDS: Aspirin 81 mg Enteric Coated Tablet PO SCH ×2 (08:33→21:10)
[2021-01-09] MEDS: Tamsulosin HCl 0.4 MG CAP PO SCH (08:34)
[2021-01-09] MEDS: Zinc Sulfate 220 MG CAP PO SCH (08:34)
[2021-01-09] MEDS: Allopurinol 100 MG TAB PO SCH (08:34)
[2021-01-09] MEDS: Cholecalciferol 1,000 UNITS (25 MCG) TAB PO SCH (08:34)
[2021-01-09] MEDS ORDERED: CEFAZOLIN 2 GM in Premix Bag 1 BAG IVPB SCH (12:00)
[2021-01-09] MEDS: cefTRIAXone\\ROCEPHIN 2 GM in Sodium Chloride 0.9% 100 ML IVPB SCH (15:47)
[2021-01-09] MEDS: Cyclobenzaprine 10 MG TAB PO PRN (18:04)
[2021-01-09] MEDS: Valsartan 80 MG TAB PO SCH (21:10)
[2021-01-09] MEDS: Amiodarone 200 MG TAB PO SCH (21:10)
[2021-01-10] MEDS: Acetaminophen 325 MG TAB PO SCH ×5 (00:08→23:19)
[2021-01-10] MEDS: Cyclobenzaprine 10 MG TAB PO PRN (02:56)
[2021-01-10 06:01] LABS: Hemoglobin 8.4 g/dL (14.0-18.0); Mean Corpuscular HGB CONC 32.5 g/dL (32.0-36.0); Mean Corpuscular Hemoglobin 28.5 pg (27.0-31.0); Mean Corpuscular Volume 87.9 fL (78.0-98.0); Platelet Count 219 thou/uL (130-400); RBC Distribution Width 13.9 % (11.5-14.5); Red Blood Cell (RBC) Count 2.93 mill/uL (4.70-6.10); White Blood Cell (WBC) Count 8.5 thou/uL (4.8-10.8)
[2021-01-10] MEDS: Sodium Chloride 0.9% 1,000 ML IV SCH ×2 (07:22→15:07)
[2021-01-10] MEDS: Magnesium Oxide 250 MG TAB PO SCH (09:53)
[2021-01-10] MEDS: Tamsulosin HCl 0.4 MG CAP PO SCH (09:53)
[2021-01-10] MEDS: Multivitamin W/ Minerals 1 TAB PO SCH (09:53)
[2021-01-10] MEDS: Aspirin 81 mg Enteric Coated Tablet PO SCH ×2 (09:53→21:10)
[2021-01-10] MEDS: Triamterene/Hydrochlorothiazide 37.5 mg/25 mg Tablet PO SCH (09:53)
[2021-01-10] MEDS: Senokot S 8.6-50 MG TAB PO SCH ×2 (09:53→21:10)
[2021-01-10] MEDS: Allopurinol 100 MG TAB PO SCH (09:53)
[2021-01-10] MEDS: Ferrous Sulfate 325 MG TAB PO SCH ×2 (09:53→16:48)
[2021-01-10] MEDS: HYDROcodone/Acetaminophen 10/325 mg Tablet PO PRN ×3 (09:54→23:20)
[2021-01-10] MEDS: Cholecalciferol 1,000 UNITS (25 MCG) TAB PO SCH (09:56)
[2021-01-10] MEDS: Zinc Sulfate 220 MG CAP PO SCH (09:56)
[2021-01-10] MEDS: cefTRIAXone\\ROCEPHIN 2 GM in Sodium Chloride 0.9% 100 ML IVPB SCH (15:06)
[2021-01-10 19:09] LABS: Fungus Stain Final report (.)
[2021-01-10 19:09] LABS: Fungus Stain Final report (.)
[2021-01-10] MEDS: Valsartan 80 MG TAB PO SCH (21:10)
[2021-01-10] MEDS: Amiodarone 200 MG TAB PO SCH (21:10)
[2021-01-11 05:34] LABS: Hemoglobin 8.2 g/dL (14.0-18.0); Mean Corpuscular HGB CONC 32.4 g/dL (32.0-36.0); Mean Corpuscular Hemoglobin 28.8 pg (27.0-31.0); Mean Corpuscular Volume 88.8 fL (78.0-98.0); Mean Platelet Volume 6.2 fL (7.4-10.4); Platelet Count 214 thou/uL (130-400); RBC Distribution Width 13.9 % (11.5-14.5); Red Blood Cell (RBC) Count 2.84 mill/uL (4.70-6.10); White Blood Cell (WBC) Count 6.7 thou/uL (4.8-10.8)
[2021-01-11] MEDS: Acetaminophen 325 MG TAB PO SCH ×2 (06:09→12:45)
[2021-01-11] MEDS: Sodium Chloride 0.9% 1,000 ML IV SCH ×2 (06:13→12:46)
[2021-01-11] MEDS: Ferrous Sulfate 325 MG TAB PO SCH (08:11)
[2021-01-11] MEDS: Allopurinol 100 MG TAB PO SCH (08:11)
[2021-01-11] MEDS: Senokot S 8.6-50 MG TAB PO SCH (08:12)
[2021-01-11] MEDS: Aspirin 81 mg Enteric Coated Tablet PO SCH (08:12)
[2021-01-11] MEDS: Magnesium Oxide 250 MG TAB PO SCH (08:12)
[2021-01-11] MEDS: Tamsulosin HCl 0.4 MG CAP PO SCH (08:12)
[2021-01-11] MEDS: Zinc Sulfate 220 MG CAP PO SCH (08:13)
[2021-01-11] MEDS: Triamterene/Hydrochlorothiazide 37.5 mg/25 mg Tablet PO SCH (08:13)
[2021-01-11] MEDS: Multivitamin W/ Minerals 1 TAB PO SCH (08:13)
[2021-01-11] MEDS: Cholecalciferol 1,000 UNITS (25 MCG) TAB PO SCH (08:16)
[2021-01-11 12:26] VITALS: BP 150/94; TEMP 98.7
[2021-01-11] MEDS: cefTRIAXone\\ROCEPHIN 2 GM in Sodium Chloride 0.9% 100 ML IVPB SCH (13:34)
[2021-01-11] MEDS: HYDROcodone/Acetaminophen 10/325 mg Tablet PO PRN (16:13)
[2021-01-11 20:58] VITALS: BMI 296.9
== END 2021-01-11 16:30 | disposition home or self-care (01) | DRG 467 ==
LOC: SDC 10:02 → SURG B 14:29
PROVIDERS: ADMIT Orthopaedic Surgery; ATTEND Orthopaedic Surgery
PROC: 0SR9029 Replacement of Right Hip Joint with Metal on Polyethylene Synthetic Substitute, Cemented, Open Approach (ICD-10-PCS; principal; 2021-01-08)
PROC: 0SP90JZ Removal of Synthetic Substitute from Right Hip Joint, Open Approach (ICD-10-PCS; 2021-01-08)
PROC: 02HV33Z Insertion of Infusion Device into Superior Vena Cava, Percutaneous Approach (ICD-10-PCS; 2021-01-09)
PROC: B5181ZA Fluoroscopy of Superior Vena Cava using Low Osmolar Contrast, Guidance (ICD-10-PCS; 2021-01-09)
PROC: B548ZZA Ultrasonography of Superior Vena Cava, Guidance (ICD-10-PCS; 2021-01-09)
DX: T84.51XA Infection and inflammatory reaction due to internal right hip prosthesis, initial encounter (principal); M00.9 Pyogenic arthritis, unspecified; Y83.1 Surgical operation with implant of artificial internal device as the cause of abnormal reaction of the patient, or of later complication, without mention of misadventure at the time of the procedure; I48.91 Unspecified atrial fibrillation; I10 Essential (primary) hypertension; I25.10 Atherosclerotic heart disease of native coronary artery without angina pectoris; M10.9 Gout, unspecified; Z96.653 Presence of artificial knee joint, bilateral; Z96.642 Presence of left artificial hip joint; Z79.899 Other long term (current) drug therapy; Z79.01 Long term (current) use of anticoagulants
CPT/HCPCS: 36415; 36569; 85027; 86850; 86900; 86901; 87070; 87077; 87102; 87186; 87205; 87206; C1713; C1751; J0690; J0696; J1100; J2250; J2405; J2704; J3010; J3260; J3370; J3490; P9045

== ENCOUNTER 2021-05-31 05:51 | Inpatient (IN) | payer MEDICARE, BC ==
[2021-05-29 10:56] VITALS: BMI 29.5
[2021-05-31] MEDS ORDERED: Ropivacaine 0.5% HCl/PF (150 MG/30 ML VIAL) ONE (06:43)
[2021-05-31] MEDS ORDERED: Promethazine HCl 25 MG/ML VIAL IM PRN ×2 (06:54→09:03)
[2021-05-31] MEDS ORDERED: Ondansetron PF 4 MG/2 ML Vial IVP PRN (06:54)
[2021-05-31] MEDS ORDERED: Acetaminophen 325 MG TAB PO PRN (06:54)
[2021-05-31] MEDS ORDERED: diphenhydrAMINE 25 MG CAP PO PRN (06:54)
[2021-05-31] MEDS ORDERED: Fentanyl 100 MCG/2 ML VIAL SLOW IVP PRN ×2 (06:54)
[2021-05-31] MEDS ORDERED: HYDROcodone/Acetaminophen 10/325 mg Tablet PO PRN (06:54)
[2021-05-31] MEDS ORDERED: Phenylephrine 10 MG/ML VIAL ONE (07:15)
[2021-05-31] MEDS ORDERED: Famotidine/PF 20 mg/2ml Vial ONE (07:15)
[2021-05-31] MEDS ORDERED: Tranexamic Acid 1,000 MG/10 ML VIAL ONE (07:24)
[2021-05-31] MEDS ORDERED: Fentanyl 100 MCG/2 ML VIAL ONE ×2 (07:29→10:15)
[2021-05-31] MEDS ORDERED: Lidocaine 1% PF 5 ML VIAL ONE (07:33)
[2021-05-31] MEDS ORDERED: Glycopyrrolate 0.2 MG/ML 5 ML SYRINGE ONE (07:33)
[2021-05-31] MEDS ORDERED: Ondansetron PF 4 MG/2 ML Vial ONE (07:33)
[2021-05-31] MEDS ORDERED: PHENYLEPHRINE-NS 100 MCG/ML 10 ML SYRINGE ONE (07:33)
[2021-05-31] MEDS ORDERED: Rocuronium Bromide 10 MG/ML (10ML VIAL) ONE (07:33)
[2021-05-31] MEDS ORDERED: ePHEDrine 50 MG/ML VIAL ONE (07:33)
[2021-05-31] MEDS ORDERED: Dexamethasone 20 MG/5 ML VIAL ONE (07:33)
[2021-05-31] MEDS ORDERED: PROPOFOL 200 MG/20 ML VIAL ONE (07:33)
[2021-05-31] MEDS ORDERED: Aspirin 81 mg Enteric Coated Tablet PO SCH (09:00)
[2021-05-31] MEDS ORDERED: PACU-Morphine 4MG/ML VIAL SLOW IVP PRN (09:03)
[2021-05-31] MEDS ORDERED: Promethazine HCl 25 MG/ML VIAL IVPB PRN (09:03)
[2021-05-31] MEDS ORDERED: Bupivacaine 0.25% 10 ML VIAL ONE (09:09)
[2021-05-31 11:14] LABS: Hemoglobin 9.3 g/dL (14.0-18.0)
[2021-05-31] MEDS: Sodium Chloride 0.9% 1,000 ML IV SCH ×2 (12:30→18:33)
[2021-05-31] MEDS: Ascorbic Acid 500 mg Chewable Tablet PO SCH (13:06)
[2021-05-31] MEDS: Aspirin 81 mg Enteric Coated Tablet PO SCH ×2 (13:06→19:50)
[2021-05-31] MEDS: Allopurinol 100 MG TAB PO SCH (13:06)
[2021-05-31] MEDS: Magnesium Oxide 400 MG TAB PO SCH (13:07)
[2021-05-31] MEDS: Tamsulosin HCl 0.4 MG CAP PO SCH (13:07)
[2021-05-31] MEDS: Triamterene/Hydrochlorothiazide 37.5 mg/25 mg Tablet PO SCH (13:07)
[2021-05-31] MEDS: Cholecalciferol 1,000 UNITS (25 MCG) TAB PO SCH (13:07)
[2021-05-31] MEDS: Zinc Sulfate 220 MG CAP PO SCH (13:08)
[2021-05-31] MEDS: Acetaminophen 325 MG TAB PO SCH ×2 (13:21→17:51)
[2021-05-31] MEDS: ceFAZolin (BATCH) 2 GM in Premix Bag 1 BAG IVPB SCH (15:58)
[2021-05-31] MEDS ORDERED: Cepastat Lozenges 1 LOZ PO PRN (18:41)
[2021-05-31] MEDS: Valsartan 80 MG TAB PO SCH (19:50)
[2021-05-31] MEDS: Ciprofloxacin 500 MG TAB PO SCH (19:50)
[2021-05-31] MEDS: Amiodarone 200 MG TAB PO SCH (19:50)
[2021-05-31] MEDS: HYDROcodone/Acetaminophen 10/325 mg Tablet PO PRN (21:48)
[2021-05-31] MEDS: Zolpidem Tartrate 5 MG TAB PO PRN (21:49)
[2021-06-01] MEDS: ceFAZolin (BATCH) 2 GM in Premix Bag 1 BAG IVPB SCH ×2 (00:01→08:34)
[2021-06-01] MEDS: Acetaminophen 325 MG TAB PO SCH ×5 (01:22→23:36)
[2021-06-01] MEDS: Sodium Chloride 0.9% 1,000 ML IV SCH ×3 (04:24→23:36)
[2021-06-01 05:16] LABS: #Eosinphils 0.1 thou/uL (0.0-0.7); #Lymphocytes 1.2 thou/uL (1.20-3.40); #Monocytes 1.1 thou/uL (0.11-0.59); #Neutrophils 9.7 thou/uL (1.40-6.50); %Basophils 0.2 % (0.0-1.0); %Eosinophils 0.6 % (0.0-10.0); %Lymphocytes 9.6 % (21.0-51.0); %Monocytes 9.4 % (0.0-10.0); %Neutrophils 80.3 % (42.0-75.0); Hemoglobin 8.6 g/dL (14.0-18.0); Mean Corpuscular HGB CONC 31.8 g/dL (32.0-36.0); Mean Corpuscular Hemoglobin 29.4 pg (27.0-31.0); Mean Corpuscular Volume 92.6 fL (78.0-98.0); Mean Platelet Volume 6.2 fL (7.4-10.4); Platelet Count 281 thou/uL (130-400); RBC Distribution Width 14.1 % (11.5-14.5); Red Blood Cell (RBC) Count 2.92 mill/uL (4.70-6.10); White Blood Cell (WBC) Count 12.1 thou/uL (4.8-10.8)
[2021-06-01 05:37] LABS: Anion Gap 11 mmol/L (10-20); BUN (Urea Nitrogen) 19 mg/dL (8.4-25.7); Calc. Creatinine Clearance 96 mL/min (70-130); Calcium 8.5 mg/dL (7.8-10.44); Carbon Dioxide 22 mmol/L (23-31); Chloride 105 mmol/L (98-107); Glucose 117 mg/dL (83-110); Potassium 4.2 mmol/L (3.5-5.1); Sodium 134 mmol/L (136-145)
[2021-06-01] MEDS: Ciprofloxacin 500 MG TAB PO SCH (06:41)
[2021-06-01] MEDS: Cefepime 2 GM in Sodium Chloride 0.9% 100 ML IVPB SCH ×2 (08:35→20:39)
[2021-06-01] MEDS: Senokot S 8.6-50 MG TAB PO SCH ×2 (08:38→20:40)
[2021-06-01] MEDS: Cholecalciferol 1,000 UNITS (25 MCG) TAB PO SCH (08:38)
[2021-06-01] MEDS: Ascorbic Acid 500 mg Chewable Tablet PO SCH (08:38)
[2021-06-01] MEDS: Aspirin 81 mg Enteric Coated Tablet PO SCH ×2 (08:39→20:40)
[2021-06-01] MEDS: Zinc Sulfate 220 MG CAP PO SCH (08:40)
[2021-06-01] MEDS: Tamsulosin HCl 0.4 MG CAP PO SCH (08:40)
[2021-06-01] MEDS: Multivitamin W/ Minerals 1 TAB PO SCH (08:40)
[2021-06-01] MEDS: Ferrous Gluconate 324 MG TAB PO SCH ×2 (08:40→17:41)
[2021-06-01] MEDS: Magnesium Oxide 400 MG TAB PO SCH (08:40)
[2021-06-01] MEDS: Allopurinol 100 MG TAB PO SCH (08:40)
[2021-06-01] MEDS: Triamterene/Hydrochlorothiazide 37.5 mg/25 mg Tablet PO SCH (08:41)
[2021-06-01] MEDS: HYDROcodone/Acetaminophen 10/325 mg Tablet PO PRN ×2 (08:52→22:24)
[2021-06-01] MEDS: Vancomycin HCl 1.5 GM in Sodium Chloride 0.9% 250 ML 300 ML IVPB SCH (11:15)
[2021-06-01] MEDS: Amiodarone 200 MG TAB PO SCH (20:40)
[2021-06-01] MEDS: Valsartan 80 MG TAB PO SCH (20:40)
[2021-06-01] MEDS: Zolpidem Tartrate 5 MG TAB PO PRN (22:24)
[2021-06-02 05:41] LABS: Hemoglobin 8.3 g/dL (14.0-18.0); Mean Corpuscular HGB CONC 31.7 g/dL (32.0-36.0); Mean Corpuscular Hemoglobin 29.4 pg (27.0-31.0); Mean Corpuscular Volume 92.8 fL (78.0-98.0); Mean Platelet Volume 6.3 fL (7.4-10.4); Platelet Count 250 thou/uL (130-400); RBC Distribution Width 14.3 % (11.5-14.5); Red Blood Cell (RBC) Count 2.82 mill/uL (4.70-6.10); White Blood Cell (WBC) Count 7.6 thou/uL (4.8-10.8)
[2021-06-02] MEDS: Acetaminophen 325 MG TAB PO SCH ×3 (06:36→17:45)
[2021-06-02] MEDS: Ascorbic Acid 500 mg Chewable Tablet PO SCH (08:29)
[2021-06-02] MEDS: Aspirin 81 mg Enteric Coated Tablet PO SCH ×2 (08:30→20:26)
[2021-06-02] MEDS: Senokot S 8.6-50 MG TAB PO SCH ×2 (08:30→20:25)
[2021-06-02] MEDS: Triamterene/Hydrochlorothiazide 37.5 mg/25 mg Tablet PO SCH (08:31)
[2021-06-02] MEDS: Zinc Sulfate 220 MG CAP PO SCH (08:32)
[2021-06-02] MEDS: Tamsulosin HCl 0.4 MG CAP PO SCH (08:32)
[2021-06-02] MEDS: Allopurinol 100 MG TAB PO SCH (08:32)
[2021-06-02] MEDS: Magnesium Oxide 400 MG TAB PO SCH (08:33)
[2021-06-02] MEDS: Ferrous Gluconate 324 MG TAB PO SCH (08:34)
[2021-06-02] MEDS: Multivitamin W/ Minerals 1 TAB PO SCH (08:35)
[2021-06-02] MEDS: Cholecalciferol 1,000 UNITS (25 MCG) TAB PO SCH (08:37)
[2021-06-02] MEDS: Cefepime 2 GM in Sodium Chloride 0.9% 100 ML IVPB SCH ×2 (08:37→20:26)
[2021-06-02 09:09] LABS: Vancomycin, Trough 6.9 ug/mL
[2021-06-02] MEDS ORDERED: Vancomycin HCl 1.5 GM in Sodium Chloride 0.9% 250 ML 300 ML IVPB SCH (09:45)
[2021-06-02] MEDS: Sodium Chloride 0.9% 1,000 ML IV SCH ×2 (11:14→19:02)
[2021-06-02] MEDS: Vancomycin HCl 1.5 GM in Sodium Chloride 0.9% 250 ML 300 ML IVPB SCH ×2 (11:35→22:52)
[2021-06-02] MEDS: Ferrous Sulfate 325 MG TAB PO SCH (17:45)
[2021-06-02] MEDS: Amiodarone 200 MG TAB PO SCH (20:26)
[2021-06-02] MEDS: Valsartan 80 MG TAB PO SCH (20:26)
[2021-06-02] MEDS: HYDROcodone/Acetaminophen 10/325 mg Tablet PO PRN (22:30)
[2021-06-02] MEDS: Zolpidem Tartrate 5 MG TAB PO PRN (22:30)
[2021-06-03] MEDS: Acetaminophen 325 MG TAB PO SCH ×4 (04:36→18:19)
[2021-06-03] MEDS: Sodium Chloride 0.9% 1,000 ML IV SCH ×2 (04:51→18:21)
[2021-06-03 04:55] LABS: Hemoglobin 8.4 g/dL (14.0-18.0); Mean Corpuscular Hemoglobin 29.7 pg (27.0-31.0); Mean Corpuscular Volume 92.6 fL (78.0-98.0); Mean Platelet Volume 6.2 fL (7.4-10.4); Platelet Count 276 thou/uL (130-400); RBC Distribution Width 14.2 % (11.5-14.5); Red Blood Cell (RBC) Count 2.84 mill/uL (4.70-6.10); White Blood Cell (WBC) Count 7.8 thou/uL (4.8-10.8)
[2021-06-03] MEDS: Ferrous Sulfate 325 MG TAB PO SCH ×2 (08:27→18:19)
[2021-06-03] MEDS: Multivitamin W/ Minerals 1 TAB PO SCH (08:27)
[2021-06-03] MEDS: Magnesium Oxide 400 MG TAB PO SCH (08:27)
[2021-06-03] MEDS: Triamterene/Hydrochlorothiazide 37.5 mg/25 mg Tablet PO SCH (08:27)
[2021-06-03] MEDS: Allopurinol 100 MG TAB PO SCH (08:27)
[2021-06-03] MEDS: Senokot S 8.6-50 MG TAB PO SCH ×2 (08:28→20:30)
[2021-06-03] MEDS: Aspirin 81 mg Enteric Coated Tablet PO SCH ×2 (08:28→20:29)
[2021-06-03] MEDS: Ascorbic Acid 500 mg Chewable Tablet PO SCH (08:28)
[2021-06-03] MEDS: Zinc Sulfate 220 MG CAP PO SCH (08:28)
[2021-06-03] MEDS: Cefepime 2 GM in Sodium Chloride 0.9% 100 ML IVPB SCH ×2 (08:28→20:29)
[2021-06-03] MEDS: Tamsulosin HCl 0.4 MG CAP PO SCH (08:28)
[2021-06-03] MEDS: Cholecalciferol 1,000 UNITS (25 MCG) TAB PO SCH (08:28)
[2021-06-03] MEDS: Vancomycin HCl 1.5 GM in Sodium Chloride 0.9% 250 ML 300 ML IVPB SCH ×2 (10:28→22:54)
[2021-06-03] MEDS: Amiodarone 200 MG TAB PO SCH (20:29)
[2021-06-03] MEDS: Valsartan 80 MG TAB PO SCH (20:30)
[2021-06-03 20:35] LABS: Vancomycin, Trough 16.4 ug/mL
[2021-06-03] MEDS: HYDROcodone/Acetaminophen 10/325 mg Tablet PO PRN (22:21)
[2021-06-03] MEDS: Zolpidem Tartrate 5 MG TAB PO PRN (22:22)
[2021-06-04] MEDS: Acetaminophen 325 MG TAB PO SCH ×5 (00:06→22:31)
[2021-06-04] MEDS: Sodium Chloride 0.9% 1,000 ML IV SCH ×3 (00:40→22:37)
[2021-06-04 05:41] LABS: #Eosinphils 0.4 thou/uL (0.0-0.7); #Lymphocytes 1.5 thou/uL (1.20-3.40); #Monocytes 0.8 thou/uL (0.11-0.59); #Neutrophils 5.5 thou/uL (1.40-6.50); %Basophils 0.4 % (0.0-1.0); %Eosinophils 5.1 % (0.0-10.0); %Lymphocytes 17.8 % (21.0-51.0); %Neutrophils 66.8 % (42.0-75.0); Hemoglobin 9.1 g/dL (14.0-18.0); Mean Corpuscular HGB CONC 32.5 g/dL (32.0-36.0); Mean Corpuscular Hemoglobin 30.2 pg (27.0-31.0); Mean Corpuscular Volume 92.9 fL (78.0-98.0); Mean Platelet Volume 6.1 fL (7.4-10.4); Platelet Count 290 thou/uL (130-400); RBC Distribution Width 14.4 % (11.5-14.5); White Blood Cell (WBC) Count 8.2 thou/uL (4.8-10.8)
[2021-06-04 06:05] LABS: Anion Gap 9 mmol/L (10-20); BUN (Urea Nitrogen) 15 mg/dL (8.4-25.7); Calc. Creatinine Clearance 98 mL/min (70-130); Calcium 8.6 mg/dL (7.8-10.44); Carbon Dioxide 27 mmol/L (23-31); Chloride 104 mmol/L (98-107); Glucose 92 mg/dL (83-110); Potassium 4.1 mmol/L (3.5-5.1); Sodium 136 mmol/L (136-145)
[2021-06-04] MEDS: Triamterene/Hydrochlorothiazide 37.5 mg/25 mg Tablet PO SCH (07:36)
[2021-06-04] MEDS: Ascorbic Acid 500 mg Chewable Tablet PO SCH (07:36)
[2021-06-04] MEDS: Multivitamin W/ Minerals 1 TAB PO SCH (07:36)
[2021-06-04] MEDS: Magnesium Oxide 400 MG TAB PO SCH (07:37)
[2021-06-04] MEDS: Aspirin 81 mg Enteric Coated Tablet PO SCH ×2 (07:37→21:55)
[2021-06-04] MEDS: Allopurinol 100 MG TAB PO SCH (07:37)
[2021-06-04] MEDS: Tamsulosin HCl 0.4 MG CAP PO SCH (07:37)
[2021-06-04] MEDS: Zinc Sulfate 220 MG CAP PO SCH (07:37)
[2021-06-04] MEDS: Ferrous Sulfate 325 MG TAB PO SCH ×2 (07:38→18:32)
[2021-06-04] MEDS: Cholecalciferol 1,000 UNITS (25 MCG) TAB PO SCH (07:38)
[2021-06-04] MEDS: Cefepime 2 GM in Sodium Chloride 0.9% 100 ML IVPB SCH (09:54)
[2021-06-04] MEDS: Senokot S 8.6-50 MG TAB PO SCH ×2 (10:00→21:54)
[2021-06-04] MEDS: Vancomycin HCl 1.5 GM in Sodium Chloride 0.9% 250 ML 300 ML IVPB SCH ×2 (11:09→22:26)
[2021-06-04] MEDS: cefTRIAXone\\ROCEPHIN 2 GM in Sodium Chloride 0.9% 100 ML IVPB SCH (14:25)
[2021-06-04] MEDS: Valsartan 80 MG TAB PO SCH (21:55)
[2021-06-04] MEDS: Amiodarone 200 MG TAB PO SCH (21:56)
[2021-06-04] MEDS: Zolpidem Tartrate 5 MG TAB PO PRN (22:03)
[2021-06-05 05:54] LABS: Mean Corpuscular HGB CONC 32.7 g/dL (32.0-36.0); Mean Corpuscular Hemoglobin 30.4 pg (27.0-31.0); Mean Corpuscular Volume 93.2 fL (78.0-98.0); Mean Platelet Volume 6.3 fL (7.4-10.4); Platelet Count 345 thou/uL (130-400); RBC Distribution Width 14.9 % (11.5-14.5); Red Blood Cell (RBC) Count 2.96 mill/uL (4.70-6.10)
[2021-06-05] MEDS: Acetaminophen 325 MG TAB PO SCH ×2 (06:33→12:29)
[2021-06-05] MEDS: Sodium Chloride 0.9% 1,000 ML IV SCH ×2 (06:35→17:21)
[2021-06-05] MEDS: Aspirin 81 mg Enteric Coated Tablet PO SCH (09:05)
[2021-06-05] MEDS: Ascorbic Acid 500 mg Chewable Tablet PO SCH (09:05)
[2021-06-05] MEDS: Tamsulosin HCl 0.4 MG CAP PO SCH (09:06)
[2021-06-05] MEDS: Cholecalciferol 1,000 UNITS (25 MCG) TAB PO SCH (09:06)
[2021-06-05] MEDS: Magnesium Oxide 400 MG TAB PO SCH (09:06)
[2021-06-05] MEDS: Multivitamin W/ Minerals 1 TAB PO SCH (09:06)
[2021-06-05] MEDS: Triamterene/Hydrochlorothiazide 37.5 mg/25 mg Tablet PO SCH (09:06)
[2021-06-05] MEDS: Allopurinol 100 MG TAB PO SCH (09:06)
[2021-06-05] MEDS: Zinc Sulfate 220 MG CAP PO SCH (09:07)
[2021-06-05] MEDS: Ferrous Sulfate 325 MG TAB PO SCH ×2 (09:22→17:21)
[2021-06-05] MEDS: Senokot S 8.6-50 MG TAB PO SCH (09:23)
[2021-06-05 09:26] LABS: Vancomycin, Trough 20.3 ug/mL
[2021-06-05] MEDS: Vancomycin HCl 1.5 GM in Sodium Chloride 0.9% 250 ML 300 ML IVPB SCH (11:01)
[2021-06-05 11:31] VITALS: TEMP 98.1
[2021-06-05] MEDS: cefTRIAXone\\ROCEPHIN 2 GM in Sodium Chloride 0.9% 100 ML IVPB SCH (14:11)
[2021-06-05 15:55] VITALS: BP 135/82
== END 2021-06-05 17:00 | disposition home health service (06) | DRG 467 ==
LOC: SDC 05:51 → SJJU 06:54
PROVIDERS: ADMIT Orthopaedic Surgery; ATTEND Hospitalist
PROC: 0SRE03Z Replacement of Left Hip Joint, Acetabular Surface with Ceramic Synthetic Substitute, Open Approach (ICD-10-PCS; principal; 2021-05-31)
PROC: 0SPE0JZ Removal of Synthetic Substitute from Left Hip Joint, Acetabular Surface, Open Approach (ICD-10-PCS; 2021-05-31)
PROC: 02HV33Z Insertion of Infusion Device into Superior Vena Cava, Percutaneous Approach (ICD-10-PCS; 2021-06-01)
PROC: B5181ZA Fluoroscopy of Superior Vena Cava using Low Osmolar Contrast, Guidance (ICD-10-PCS; 2021-06-01)
PROC: B548ZZA Ultrasonography of Superior Vena Cava, Guidance (ICD-10-PCS; 2021-06-01)
DX: T84.52XA Infection and inflammatory reaction due to internal left hip prosthesis, initial encounter (principal); I48.20 Chronic atrial fibrillation, unspecified; N17.9 Acute kidney failure, unspecified; M10.9 Gout, unspecified; N40.0 Benign prostatic hyperplasia without lower urinary tract symptoms; Z96.653 Presence of artificial knee joint, bilateral; Y83.8 Other surgical procedures as the cause of abnormal reaction of the patient, or of later complication, without mention of misadventure at the time of the procedure; I12.9 Hypertensive chronic kidney disease with stage 1 through stage 4 chronic kidney disease, or unspecified chronic kidney disease; N18.30 Chronic kidney disease, stage 3 unspecified; D63.1 Anemia in chronic kidney disease; Z79.01 Long term (current) use of anticoagulants; Z90.49 Acquired absence of other specified parts of digestive tract
CPT/HCPCS: 36415; 36569; 80048; 80202; 82550; 82565; 85014; 85018; 85025; 85027; 85610; 86140; 86850; 86900; 86901; 87070; 87102; 87116; 87205; 87206; 93005; 93010; C1713; C1751; C1776; J0690; J0692; J0696; J0878; J1100; J2370; J2405; J2704; J2795; J3010; J3370; J3490; J7050; S0020; S0028; U0003; U0005

== ENCOUNTER 2021-11-28 12:05 | Outpatient (CLI) | payer MEDICARE, BC | END 2021-11-28 12:06 | disposition home or self-care (01) | LOC: BICRAD 12:05 | PROVIDERS: ATTEND Internal Medicine | DX: I48.91 Unspecified atrial fibrillation (principal); N18.32 Chronic kidney disease, stage 3b; D50.9 Iron deficiency anemia, unspecified | CPT/HCPCS: 71046 ==

== ENCOUNTER 2021-12-31 13:48 | Emergency (ER) | payer MEDICARE, BC | END 2021-12-31 15:22 | disposition home or self-care (01) | LOC: ERS 13:48 | DX: Z45.2 Encounter for adjustment and management of vascular access device (principal); I10 Essential (primary) hypertension | CPT/HCPCS: 71045; 82550; 84450; 84460; 84520; 85025; 85652; 86140 ==